=== PATIENT | male | born 1985 | race Caucasian/White ===

== ENCOUNTER 2024-10-23 13:53 | Emergency (ER) | payer OTHER, SELFPAY ==
[2024-10-23 14:05] VITALS: BP 129/71; PULSE 56; RESP 17; TEMP 37.1; O2SAT 98; BMI 25.8
--- NOTE | 2024-10-23 14:55 | ED.WOUNDLAC ---
HPI - Wound/Laceration <Monique French PA-C - Last Filed: 10/23/24 19:32> General Chief Complaint: Wound/Laceration Stated Complaint: left pointer finger cut Time Seen by Provider: 10/23/24 14:16 Source: patient Mode of arrival: Ambulatory History of Present Illness HPI narrative: Mr. 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 Patient is right-hand dominant and accidentally cut the dorsal aspect of his left index finger overlying the PIP joint with a chain saw. His Tdap is not up-to-date and will need to be updated today. Bleeding is controlled with direct pressure. Patient denies any numbness tingling or weakness of the finger. He is still able to feel normal sensation on all aspects of the distal index finger. He has brisk capillary refill. Isolated flexion and extension is intact at the D IP, MCP and PIP joints. There are no other injuries. He does not take blood thinners. He has no medication allergies. He has not taken any medications prior to arrival and is starting to develop a decent amount of pain in the finger. No other injuries or concerns. Related Data Previous Rx's ?Medication ?Instructions ?Recorded cephalexin 500 mg capsule 500 mg PO TID 7 days #21 caps 10/23/24 Allergies Allergy/AdvReac Type Severity Reaction Status Date / Time No Known Drug Allergies Allergy Verified 10/23/24 14:05 Review of Systems <Monique French PA-C - Last Filed: 10/23/24 19:32> Review of Systems ROS Unobtainable: All systems reviewed & are unremarkable except as noted in HPI and below Exam <Monique French PA-C - Last Filed: 10/23/24 19:32> Narrative Exam Narrative: GENERAL: 39 year old patient appears stated age. Well-developed patient, in no acute distress. HEAD: Atraumatic. Normocephalic. NECK: Trachea midline. Cervical ROM intact. CARDIOVASCULAR: Regular rate RESPIRATORY: ?Nonlabored respirations. ?Speaking in clear, full sentences. EXTREMITIES: Jagged linear laceration extending horizontally across the dorsal aspect of the left index finger over the PIP joint. Bleeding is controlled. Patient has brisk capillary refill on the tip of the finger distal to the wound sensation intact to light touch symmetrically on the lateral and medial aspect of the finger tip. Full and isolated flexion and extension is intact at the D IP joint, MCP joint and the PIP joint however patient does have pain with flexion and extension of the PIP joint where the laceration is. No other injuries to the hand, strong radial pulses bilaterally. NEURO: AOx3. ?Clear speech. ?Moves all 4 extremities appropriately. Equal sensation on bilateral index fingers. SKIN: Dorsal left index finger laceration described above, otherwise skin is warm and dry. Initial Vital Signs Initial Vital Signs: Vital Signs Temperature 98.7 F 10/23/24 14:05 Pulse Rate 56 L 10/23/24 14:05 Respiratory Rate 17 10/23/24 14:05 Blood Pressure 129/71 10/23/24 14:05 Pulse Oximetry 98 10/23/24 14:05 Oxygen Delivery Method Room Air 10/23/24 14:05 <Priscila Bella MD - Last Filed: 10/23/24 23:02> Initial Vital Signs Initial Vital Signs: Vital Signs Temperature 98.7 F 10/23/24 14:05 Pulse Rate 56 L 10/23/24 14:05 Respiratory Rate 17 10/23/24 14:05 Blood Pressure 129/71 10/23/24 14:05 Pulse Oximetry 98 10/23/24 14:05 Oxygen Delivery Method Room Air 10/23/24 14:05 Procedures <TRAE Morgan Last Filed: 10/23/24 19:32> Laceration Repair Laceration 1: Site: hand (dorsal index finger over PIP) Side (If applicable): left Size (cm): 3 Description: irregular Depth: simple, single layer Pre-repair: wound explored, irrigated extensively (Irrigated with 2 L of normal saline with Betadine) and deep structures intact Skin layer closed with: nylon Skin layer suture size: 5-0 Number of sutures: 6 Technique: simple, interrupted Nerve Block Nerve Block 1: Local Anesthetic: lidocaine 1% Amount of anesthesia used (mL): 5 Side: left (index) Nerve Blocks: digital Procedure Successful: Yes Patient Tolerated Procedure: Well Course <TRAE Morgan Last Filed: 10/23/24 19:32> Orders Ordered: ED Orders 10/23/24 15:07 XR finger LT min 2V Stat Discontinued Medications Hydrocodone Bitart/Acetaminophen (Hydrocodone/Acet 5/325 Tablet) 1 tab PO NOW ONE Stop: 10/23/24 15:08 Last Admin: 10/23/24 15:29 Dose: 1 tab Documented By: WILLIE Bacitracin (Bacitracin Oint 0.9 Gm Pckt) 1 applic TOP NOW ONE Stop: 10/23/24 16:57 Last Admin: 10/23/24 17:00 Dose: 1 applic Documented By: WILLIE Cephalexin HCl (Cephalexin 250 Mg Capsule) 500 mg PO NOW ONE Stop: 10/23/24 16:57 Last Admin: 10/23/24 17:00 Dose: 500 mg Documented By: WILLIE Diphtheria/Tetanus/Acell Pertussis (Tet,Diph,Pertuss(Acell),Vac/Pf 0.5 Ml Syringe) 0.5 ml IM .ONCE ONE Stop: 10/23/24 14:44 Last Admin: 10/23/24 15:28 Dose: 0.5 ml Documented By: WILLIE Ibuprofen (Ibuprofen 400 Mg Tablet) 400 mg PO NOW ONE Stop: 10/23/24 15:08 Last Admin: 10/23/24 15:29 Dose: 400 mg Documented By: WILLIE Lidocaine HCl (Lidocaine 1% 20 Ml) 5 ml SUBCUT NOW ONE Stop: 10/23/24 15:08 Last Admin: 10/23/24 15:28 Dose: 5 ml Documented By: WILLIE Ondansetron HCl (Ondansetron 4 Mg Odt) 4 mg SL NOW ONE Stop: 10/23/24 15:08 Last Admin: 10/23/24 15:29 Dose: 4 mg Documented By: WILLIE Vital Signs Vital signs: Vital Signs - 8 hr 10/23/24 17:21 Pulse Rate 55 L Respiratory Rate 17 Blood Pressure 125/70 Pulse Oximetry 100 Oxygen Delivery Method Room Air <Priscila Bella MD - Last Filed: 10/23/24 23:02> Orders Ordered: ED Orders 10/23/24 15:07 XR finger LT min 2V Stat Discontinued Medications Hydrocodone Bitart/Acetaminophen (Hydrocodone/Acet 5/325 Tablet) 1 tab PO NOW ONE Stop: 10/23/24 15:08 Last Admin: 10/23/24 15:29 Dose: 1 tab Documented By: WILLIE Bacitracin (Bacitracin Oint 0.9 Gm Pckt) 1 applic TOP NOW ONE Stop: 10/23/24 16:57 Last Admin: 10/23/24 17:00 Dose: 1 applic Documented By: WILLIE Cephalexin HCl (Cephalexin 250 Mg Capsule) 500 mg PO NOW ONE Stop: 10/23/24 16:57 Last Admin: 10/23/24 17:00 Dose: 500 mg Documented By: WILLIE Diphtheria/Tetanus/Acell Pertussis (Tet,Diph,Pertuss(Acell),Vac/Pf 0.5 Ml Syringe) 0.5 ml IM .ONCE ONE Stop: 10/23/24 14:44 Last Admin: 10/23/24 15:28 Dose: 0.5 ml Documented By: WILLIE Ibuprofen (Ibuprofen 400 Mg Tablet) 400 mg PO NOW ONE Stop: 10/23/24 15:08 Last Admin: 10/23/24 15:29 Dose: 400 mg Documented By: WILLIE Lidocaine HCl (Lidocaine 1% 20 Ml) 5 ml SUBCUT NOW ONE Stop: 10/23/24 15:08 Last Admin: 10/23/24 15:28 Dose: 5 ml Documented By: WILLIE Ondansetron HCl (Ondansetron 4 Mg Odt) 4 mg SL NOW ONE Stop: 10/23/24 15:08 Last Admin: 10/23/24 15:29 Dose: 4 mg Documented By: WILLIE Vital Signs Vital signs: Vital Signs - 8 hr 10/23/24 17:21 Pulse Rate 55 L Respiratory Rate 17 Blood Pressure 125/70 Pulse Oximetry 100 Oxygen Delivery Method Room Air MDM - Wound/Laceration <Monique French PA-C - Last Filed: 10/23/24 19:32> Medical Records Medical records narrative: None available for review Imaging Data Left Index Finger XR: Radiologist's Impression: PROCEDURE: XR FINGER LT MIN 2V INDICATIONS: left index finger (dorsal PIP) vs chainsaw TECHNIQUE: PA hand, 2 views of the index finger acquired. COMPARISON: None. FINDINGS: Bones: No acute fractures or dislocations. No suspicious bony lesions. Soft tissues: No suspicious soft tissue calcifications. Soft tissue edema in the distal index finger. No radiopaque foreign body. IMPRESSION: No acute bony abnormality. No radiopaque foreign body. If there is continued clinical concern or persistent symptoms, repeat radiographs or cross-sectional imaging (e.g. CT, MRI) may be helpful for further evaluation. Approved by: Henri Ruvalcaba M.D. 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 Differential diagnosis includes but is not limited to index finger laceration, foreign body, fracture, dislocation, open fracture, tendon injury, etc. On exam patient is in no acute distress, nontoxic-appearing, all vital signs within normal limits. He has a jagged laceration across the dorsal aspect of the PIP joint on the left index finger. Call exam is reassuring with normal sensation and capillary refill distal to the wound and full isolated flexion-extension at the D IP PIP and MCP. We will update Tdap, obtain x-ray, performed digital block and repair wound. X-ray negative for acute bony abnormality or radiopaque foreign body. Patient tolerated digital block well, wound was extensively irrigated explored, no visible tendon injury, visualized wound through full range of motion. Wound was repaired using 6 simple interrupted sutures, bacitracin and nonadherent dressing was applied to the wound and an aluminum splint was then applied for protection. Discussed proper wound care with the patient, initiated Keflex for 7 days, advised to follow up with hand surgeon to assure proper healing, discussed strict ED return precautions. Discussed rice therapy, ibuprofen and Tylenol. Patient verbalized understanding of all information agreeable with the plan. He is stable for discharge home, has a ride home. Discharge Plan Departure Patient Disposition: Home Clinical Impression: Contact with chainsaw as cause of accidental injury Laceration of left index finger Qualifiers: Encounter type: initial encounter Damage to nail status: without damage Foreign body presence: without foreign body Qualified Code(s): S61.211A - Laceration without foreign body of left index finger without damage to nail, initial encounter Instructions: DI for Laceration Repair Activity Restrictions/Additional Instructions: Dear Mr. Osuna, Today you had a laceration to your left index finger. We have placed 6 sutures. They need to be removed in 10-14 days. You may do this in your doctor's office, the [id number], or here if necessary. Please keep the dressing on your wound clean, dry, and intact for the next 24 hours. After this time, you may remove the dressing and gently clean the wound with soap and water, then pat dry. Keep the wound clean and covered. Avoid soaking the wound in any water such as a bath, pool, or the ocean. If you develop any signs of wound infection such as increased redness, pus drainage, streaking redness, or fevers, please return to the ER immediately for evaluation. Once sutures are removed and the wound has healed, apply sunscreen daily to reduce the appearance of scars. We updated your tetanus shot today. Please take Ibuprofen (Motrin/Advil) or Acetaminophen (Tylenol) for pain. These are available over the counter. You may take Ibuprofen 600 mg every 8 hours with food for pain. You may also take Acetaminophen 650 mg every 4-6 hours for pain. Do not exceed 3000 mg of Tylenol a day as this can cause liver damage. Do not drink alcohol with either of these medications. Please use RICE therapy for your pain in addition to ibuprofen/acetaminophen. Rest the painful area. Ice the area of pain/swelling for at least 15 minutes, 4x a day. Compress the area of swelling using a brace, wrap, or splint if applied. Elevate the painful or swollen extremity by supporting it above the level of the heart with pillows when sitting or laying. Please follow up with a hand specialist to ensure proper healing of your finger laceration. One of the closest hand surgeons is Dr. Phu Vail with [facility] in [place]. Their phone number is [phone]. Please follow up with your primary care doctor within the next 2-3 days for ER follow-up. (If you do not have a PCP you can call [phone]. ?to schedule an appointment with an [facility] Primary Care Provider) IF YOU DEVELOP ANY NEW OR WORSENING SYMPTOMS, RETURN TO THE ER! Please read the attached instructions, they highlight more specific treatments and interventions for you at home. Thank you for letting me participate in your care, Monique French PA-C Prescriptions: New cephalexin 500 mg capsule 500 mg PO TID 7 Days Qty: 21 0RF Stand Alone Forms: Patient Portal/API ED Sign-out <Priscila Bella MD - Last Filed: 10/23/24 23:02> Cosign ED Attending Cosignature Attestation: I was immediately available in the department for consultation throughout this patient's visit. Priscila Bella MD
--- NOTE | 2024-10-23 15:07 | DI.RAD.S_ITS ---
PROCEDURE: XR FINGER LT MIN 2V INDICATIONS: left index finger (dorsal PIP) vs chainsaw TECHNIQUE: PA hand, 2 views of the index finger acquired. COMPARISON: None. FINDINGS: Bones: No acute fractures or dislocations. No suspicious bony lesions. Soft tissues: No suspicious soft tissue calcifications. Soft tissue edema in the distal index finger. No radiopaque foreign body. IMPRESSION: No acute bony abnormality. No radiopaque foreign body. If there is continued clinical concern or persistent symptoms, repeat radiographs or cross-sectional imaging (e.g. CT, MRI) may be helpful for further evaluation. Approved by: Henri Ruvalcaba M.D. on 10/23/2024 at 15:57
[2024-10-23] MEDS: LIDOCAINE 1% 20 ML 5 ML SUBCUT (15:28)
[2024-10-23] MEDS: TET,DIPH,PERTUSS(ACELL),VAC/PF 0.5 ML SYRINGE IM (15:28)
[2024-10-23] MEDS: IBUPROFEN 400 MG TABLET PO (15:29)
[2024-10-23] MEDS: ONDANSETRON 4 MG ODT SL (15:29)
[2024-10-23] MEDS: BACITRACIN OINT 0.9 GM PCKT 1 APPLIC TOP (17:00)
[2024-10-23 17:21] VITALS: BP 125/70; PULSE 55; RESP 17; O2SAT 100
== END 2024-10-23 17:24 | disposition home or self-care (01) ==
PROVIDERS: Emergency Provider Physician Assistant
DX: S61.211A Laceration without foreign body of left index finger without damage to nail, initial encounter (principal); W29.3XXA Contact with powered garden and outdoor hand tools and machinery, initial encounter; Y99.0 Civilian activity done for income or pay; Y93.H2 Activity, gardening and landscaping; Z23 Encounter for immunization
CPT/HCPCS: 12002; 73140; 90471; 99284; 90715